=== PATIENT | female | born 1990 | race Caucasian/White ===

== ENCOUNTER → 2020-04-21 09:30 | Outpatient (BNVA) | payer BC, SELFPAY | PROVIDERS: Family Provider Nurse Practitioner Family; PCP Nurse Practitioner Family; Visit Provider Dermatology | DX: L98.9 Disorder of the skin and subcutaneous tissue, unspecified (principal) | CPT/HCPCS: 80053 ==

== ENCOUNTER → 2020-08-12 16:18 | Outpatient (BNVA) | payer BC, SELFPAY | PROVIDERS: Family Provider Nurse Practitioner Family; PCP Nurse Practitioner Family; Visit Provider Registered Nurse | DX: R63.5 Abnormal weight gain (principal); R68.89 Other general symptoms and signs | CPT/HCPCS: 80053; 84443; 85025 ==

== ENCOUNTER → 2021-07-02 08:59 | Outpatient (BNVA) | payer BC, SELFPAY | PROVIDERS: Family Provider Nurse Practitioner Family; PCP Nurse Practitioner Family; Visit Provider Registered Nurse | DX: F41.1 Generalized anxiety disorder (principal); F42.9 Obsessive-compulsive disorder, unspecified; Z79.899 Other long term (current) drug therapy | CPT/HCPCS: 80053; 84443 ==

== ENCOUNTER → 2021-09-14 13:37 | Outpatient (BNVA) | payer BC, SELFPAY | PROVIDERS: Family Provider Nurse Practitioner Family; PCP Nurse Practitioner Family; Visit Provider Registered Nurse | DX: K13.0 Diseases of lips (principal) | CPT/HCPCS: 87070; 87077; 87184 ==

== ENCOUNTER → 2022-05-04 12:58 | Outpatient (BNVA) | payer BC, SELFPAY | PROVIDERS: Family Provider Nurse Practitioner Family; PCP Nurse Practitioner Family; Referring Provider Nurse Practitioner Family; Visit Provider Podiatrist Foot & Ankle Surgery | DX: M25.579 Pain in unspecified ankle and joints of unspecified foot (principal); G89.29 Other chronic pain | CPT/HCPCS: 73610 ==

== ENCOUNTER 2022-07-14 09:04 | Outpatient (CLI) | payer BC, SELFPAY ==
--- NOTE | 2022-07-14 09:30 | MR_ITS ---
WS: [id number] MRI LEFT ANKLE without CONTRAST. COMPARISON: Radiographs 05/04/2022 Multiplanar, multisequence imaging is performed without contrast. Moderate amount of fluid in the lateral ankle joint anteriorly. There is a complete tear with absence of the anterior talofibular ligament. This is at the site of the fluid. Small ligamentous stumps are noted both at the talar and fibular attachments. There is a fluid-filled gap present at the site of the tear. Calcaneofibular ligament is only partially visualized. CFL is in normal position just med ial to the peroneus longus tendon sheath. The CFL cannot be followed in its entirety. The anterior and posterior tibiofibular ligaments are intact. The posterior talofibular ligament also appears intact. Deltoid ligament is normal. No significant widening or asymmetry of the ankle mortise. No loose bodies. The distal Achilles tendon is normal. Plantar aponeurosis is normal. The tendons within the extensor and flexor sheaths are normal. MR/MR ankle LT con* [id number] IMPRESSION: 1. Complete tear anterior talofibular ligament with a large fluid gap. 2. Incomplete visualization of the calcaneofibular ligament. 3. Mild tenosynovitis of the peroneus tendon sheath.
== END 2022-07-14 09:05 | disposition home or self-care (01) ==
PROVIDERS: Family Provider Nurse Practitioner Family; PCP Nurse Practitioner Family; Visit Provider Podiatrist Foot & Ankle Surgery
DX: G89.29 Other chronic pain; S93.492A Sprain of other ligament of left ankle, initial encounter; X58.XXXA Exposure to other specified factors, initial encounter; M65.872 Other synovitis and tenosynovitis, left ankle and foot
CPT/HCPCS: 73721

== ENCOUNTER 2022-07-29 09:07 | Day surgery (SDC) | payer BC, SELFPAY ==
[2022-07-28 18:09] VITALS: BMI 33.2
[2022-07-29] VITALS (9 sets, daily range): BP systolic 102–133; BP diastolic 46–86; PULSE 68–85; RESP 16–20; TEMP 36.5–36.9; O2SAT 94–100
--- NOTE | 2022-07-29 | SCC_ITS ---
PROCEDURE DONE: anterior talofibular ligament with a large fluid gap C-arm images of the LEFT ankle were saved for the patient's permanent record. JAYLA
--- NOTE | 2022-07-29 | XR_ITS ---
WS: [id number] INTRAOPERATIVE TECHNIQUE: 2 Spot fluoroscopic images for intraoperative purposes. CLINICAL INFORMATION: Reconstruction of lateral collateral ligaments and peroneal COMPARISON: None. FINDINGS: Reconstruction of the lateral collateral ligaments/ATF. Localization marker projected over the subtal ar facet. XR/XR ankle LT 2V [id number] IMPRESSION: Images obtained for intraoperative purposes.
[2022-07-29] MEDS: gabapentin 300 mg Capsule PO (09:53)
[2022-07-29] MEDS: CELEcoxib 200 mg Capsule 400 MG PO (09:53)
[2022-07-29] MEDS: sodium chloride 0.9% 1,000 ML 30 ML IV (09:53)
[2022-07-29] MEDS: midazolam 1 mg/mL INJ 2 mL 2 MG IVP (10:25)
--- NOTE | 2022-07-29 10:30 | W.PM.OPSUD ---
Surgery/Procedure H&P Update DATE OF PROCEDURE: July 29, 2022 DATE H&P PERFORMED: 07/20/22 CHANGES TO PREVIOUS DOCUMENTATION: none PREOP DIAGNOSIS: Left ankle instability PLANNED PROCEDURE: Operation Date: 07/29/22 10:40 Proposed Procedures p Reconstruction of lateral collateral ligaments and peroneal tenolysis, left ankle [id number],S93.412D(Left) - James Meza DPM
[2022-07-29 10:34] LABS: Blood Urea Nitrogen 11 mg/dL (6-20); Calcium 9.2 mg/dL (8.5-10.5); Carbon Dioxide 24 mmol/L (22-29); Chloride 100 mmol/L (98-107); Creatinine Clr Calc Pharmacy 125.8449; Glomerular Filtration Rate 117.4 mL/min (90-130); Glucose 81 mg/dL (65-115); Osmolality Calculated 280 mOsm/kg (285-295); Sodium 136 mmol/L (136-145)
[2022-07-29] MEDS: clindamycin 600 MG/50 ML PREMIX 100 MG IV (10:47)
--- NOTE | 2022-07-29 10:47 | ANES.PREANE2 ---
Pre-Anesthetic Assessment Height/Weight: Height 1.52 m Weight 77.111 kg Temp Pulse Resp BP Pulse Ox O2 Del Method 97.7 F 68 18 133/86 98 07/29/22 10:09 07/29/22 10:09 07/29/22 10:09 07/29/22 10:09 07/29/22 10:09 07/29/22 10:09 Preop Diagnosis: Left ankle instability Operation Date: 07/29/22 10:40 Proposed Procedures p Reconstruction of lateral collateral ligaments and peroneal tenolysis, left ankle [id number],S93.412D(Left) - James Meza DPM Familial anesthetic complications: None Was Beta Luly taken within 24 hours: N/A Was Clonidine taken within 24 hours: N/A Last intake: Intake Last Liquid Date 07/28/22 Last Liquid Time 22:30 Last Solid Date 07/28/22 Last Solid Time 22:30 Social No alcohol and No tobacco Exam alert, oriented x 3, clear to auscultation bilaterally and regular rate & rhythm Airway Submandibular: within normal limits Cervical ROM: within normal limits Mallampati: Class I Dentition: full History/ROS No significant complaints Pulmonary None reported CV/HEM None reported None reported Hepatic None reported GI None reported Metabolic Obesity PCOS Musc/skel Tendonitis Neuropsych Anxiety Anesthetic Plan ASA status: 2 Anesthesia: Anesthesia Evaluation, General and Regional (specify below) (Popliteal block for post op pain control) Other: We discussed risk and benefits of general anesthesia including PONV, sore throat (sometimes severe), corneal abrasion, positioning and peripheral nerve injuries, life threatening allergic reaction, post operative ICU admission requiring prolonged intubation, stroke, heart attack, , and rare incidences of recall. Patient consents to proceed with general anesthesia. We discussed risk and benefits of nerve block for post op pain control including management of pain and titration of pain medications as signs/symptoms of nerve block wearing off begin to appear and/or prior bed. We discussed risk of failed nerve block, vascular injury or other vital structure injury, abscess/infection, LAST, and nerve injury. Plan general with popliteal block for post op pain control. Risk of > 500 ml blood loss (7ml/kg in children): No Medications/Allergies Home Medications Medication Instructions Recorded Confirmed Last Taken Type tirzepatide 2.5 mg/0.5 mL 2.5 mg (0.5 mL) SUBCUT .once a 07/18/22 07/29/22 Unknown Rx subcutaneous pen injector week 30 days #2 mL (Sim) fluoxetine 10 mg capsule (Prozac) 10 mg PO DAILY 07/28/22 07/29/22 07/28/22 History spironolactone 50 mg tablet 50 mg PO DAILY 07/28/22 07/29/22 07/28/22 History Allergies Allergy/AdvReac Type Severity Reaction Status Date / Time cefaclor [From [facility]] Allergy Mild rash Verified 07/28/22 18:07 Penicillins Allergy Unknown Verified 07/28/22 18:07 Current Medications Generic Name Dose Route Start Last Admin Trade Name Freq PRN Reason Stop Dose Admin Sodium Chloride 1,000 mls @ 30 mls/hr 07/29/22 09:30 07/29/22 09:53 Sodium Chloride 0.9% IV 07/30/22 09:29 30 mls/hr .Q24H SREEKANTH Administration PFSH Anesthesia Medical History Anxiety disorder Obesity (BMI 30-39.9) PCOS (polycystic ovarian syndrome) Social History Smoking and tobacco status: never smoked Alcohol intake: never Adopted: No Caregiver/support person: No Lives independently: No Household members: children service: No Current occupational status: employed Sexually active: Yes Current gender identity: Female Data Anesthesia : 07/29/22 09:46 BMP 07/29/22 09:46 Sodium 136 Potassium 4.0 Chloride 100 Carbon Dioxide 24 BUN 11 Creatinine 0.6 Glucose 81 Calcium 9.2 Cardiac Studies: No Data to Display
--- NOTE | 2022-07-29 12:48 | PM.OP ---
Operative Report Date of procedure: July 29, 2022 Pre-op diagnosis: Preop Diagnosis Left ankle instability
--- NOTE | 2022-07-29 15:44 | ANES.PROC ---
Anesthesia Procedures Procedure/Date: 07/29/22 Nerve Block ^: Nerve Block 1: Main Anesthesia: general anesthesia Time Out Performed: Yes Consent: requested by attending/covering physician, from patient, risks and benefits reviewed and patient agrees to proceed Nerve block location: popliteal Anesthesia monitors applied: pulse oximetry, EKG and BP cuff Nerve block position: semi sitting Anesthetic Used: ropivicaine 0.5% Amount of anesthesia used (mL): 20 Ultrasound used to: other (visualize adn ID popliteal nerve) Nerve Stimulator Used?: Yes (Motor response lost at 0.4 mA) Interscalene/Femoral BLK: 4 stimuplex 21 g needle used for position and inplane approach, visualize local anesthetic spread and no vascular puncture identified Injection: neg aspiration of heme Patient Tolerated Procedure: well Complications: none Additional Comments: After time out sterile prep, using sterile technique, and using real time US guidance for target selection needle was inserted with real time visualization of needle entry and real time visualization of needle advancement toward intended target. Negative aspiration. LA injected incrementally with negative aspiration every 5 cc and real time US visualization of LA spread throughout procedure. Tolerated well. Image(s) saved.
--- NOTE | 2022-07-29 15:45 | ANE.PACU2 ---
Inpatient post-anesthesia follow up: Airway intact: Yes Vital signs: Temperature 98.3 F Pulse Rate 79 Respiratory Rate 18 Blood Pressure 125/72 Pulse Oximetry 98 Oxygen Delivery Me thod Room Air Oxygen Flow Rate 5 Fraction of Inspir ed Oxygen Hydration adequate: Yes Nausea and vomiting: No Pain level: 1 Mental status: Baseline
--- NOTE | 2022-07-29 17:12 | P.OP_ITS ---
Operative Report Date of procedure: July 29, 2022 Pre-op diagnosis: Chronic lateral ankle instability, left. Tenosynovitis, left peroneal tendons. Post-op diagnosis: Same Post-op findings: Tear to the left anterior talofibular ligament and calcaneofibular ligament. Hemorrhagic synovitis to the left peroneal tendons. Procedure done: Reconstruction of lateral collateral ligaments and peroneal tenolysis, left ankle. CPT codes 70207,24030, Implants: Arthrex Brostr?m internal brace 2.0 with additional swivel lock anchor. 2-0 Vicryl, 4-0 Vicryl, 4-0 nylon Specimens removed/disposition: None Pathology: None Surgeon: James Meza D.P.M. [employer] Dean: Norma Estimated blood loss: 5 See intraoperative documentation IV fluids: 0 Urine output: 0 Complications: None Findings: See above Brief History: Reviewed MRI with patient and discussed options: She has a full tear of the left anterior talofibular ligament.? Partial tear of the left calcaneofibular ligament and tenosynovitis of the left peroneal tendon sheath. Patient has instability and rolling of the ankle on a daily basis.? Has failed conservative treatments.? Has had instability that has progressed and several years in duration.? She would like to discuss surgical options.? Recommended modified Brostr?m with repair of the ATFL, CFL and internal brace ATFL and CFL as well as synovectomy of the peroneal tendon sheath.? I reviewed at length with the patient, the risks, potential complications, benefits, alternatives, expectations, and typical outcomes associated with the surgery. The risks and potential complications were explained in detail, including but not limited to infection, wound dehiscence or soft tissue complications, bleeding and hematoma, chronic edema, neuritis or nerve damage producing numbness or chronic pain, CRPS, failure to relieve pain or worsening pain, thick / painful / unsightly scar, limited motion / stiffness, malposition, delayed union, malunion, or nonunion, fracture, reaction to implants, anesthetic complications, venous thromboembolism, and deformity recurrence.? I discussed the notion of no regrets with the patient as it pertains to complications and outcomes. The patient seemed to understand the nature of the proposed care and required convalescence. They asked appropriate questions, answered to their satisfaction. They are aware no guarantees can be made as to a satisfactory outcome and they understand there may be other possible unforeseen complications or outcomes not listed here that will be treated accordingly if they arise. There were no written or implied guarantees given to the patient. They gave informed consent to proceed.? Expected recovery would be protected weightbearing for 2 weeks in a cam boot transitioning to ASO and supportive shoe for additional 6 to 12 weeks and may require physical therapy.? Procedure: Under mild sedation the patient was brought to the operating room and placed on the operating table in supine position. A timeout was performed. Anesthesia was administered by the anesthesia service. Left popliteal block was performed per anesthesia preoperatively. Gel bump placed under ipsilateral hip. Well- padded pneumatic tourniquet was applied to the left high calf. Left lower extremity was then scrubbed, prepped and draped utilizing normal aseptic technique. The left foot was exanguinated with an Esmarch bandage and the tourniquet inflated to 250 mmHg. Attention was directed to the left anterior lateral ankle where a curvilinear incision was made at the anterior border of the distal fibula coursing distally towards the inferior border of the lateral malleolus and further distal toward the lateral calcaneus along the course of the calcaneofibular ligament. Skin incision was made with #15 blade with dissection carried down through subcutaneous tissue to the layer of retinaculum which was tagged, incised and preserved for closure. Care was taken to retract and preserve neurovascular and tendinous structures. All bleeders were ligated and cauterized as necessary. Encountered the peroneal longus and brevis tendons, tendon sheath was incised and noted to have hemorrhagic synovitis which was sharply excised, irrigated with copious amounts of sterile saline solution and closed with a 4-0 Vicryl. Attention was then directed to the anterior border of the fibula where the soft tissue attachment of the ATFL was incised and reflected, access was gained to the sinus tarsi for sinus tarsi guide allowing appropriate anatomic recreation of the ATFL with internal brace. Guidewire was inserted from lateral to medial at the lateral talar body and confirmed with fluoroscopy to be in excellent position and near anatomic alignment for recreation of the ATFL, did not violate the ankle mortise. A Arthrex internal brace was then secured with swivel lock in the talus per manufacture recommendation and technique, this was advanced under direct position at appropriate depth and secured to the anterior fibula and extracapsular fashion with ankle in neutral position, hemostat under the internal brace was utilized to avoid over tightening. Of note the ATFL was torn, this was directly repaired and utilizing fiber tack x2 into the fibula readvanced to the attachment of the fibula. Knotless suture bridge both within the talus and fibula were performed per manufacture recommendation and technique utilizing Arthrex 2.0 internal brace, direct repair of the ATFL was performed and augmentation with internal brace secured along its course in anatomic fashion. Negative anterior drawer sign appreciated, positive talar tilt still appreciated intraoperatively necessitating repair of CFL which was performed with the remaining tail of the fibular attachment of the internal brace of the ATFL coursing downward to the lateral calcaneus. First approach after drill hole and tapping the swivel lock failed and a second swivel lock was utilized a nd fiber tape recreating the ATFL and CFL appreciated intraoperatively with negative talar tilt after repair. The incision was flushed with copious amounts of sterile skin solution. Smooth range of motion of the ankle appreciated. The incision was closed with retinaculum and capsular structure reapproximated utilizing 2-0 Vicryl, subcutaneous tissue reapproximated utilizing 4-0 Vicryl and skin with 4-0 nylon. The incision site was then dressed with jumpstart, sterile 4 x 4, Kerlix, Jeffrey wrap and cam boot applied with ankle in neutral position. Tourniquet was deflated and a prompt hyperemic response was noted to the distal digits of the left foot. Patient tolerated the procedure and anesthesia well and was transferred to the PACU with vital signs stable and vascular status intact. Fol lowing a period of postop monitoring she will be discharged home may be protected weightbearing as tolerated. Planning on physical therapy starting 2 weeks postoperatively.
== END 2022-07-29 14:00 | disposition home or self-care (01) ==
PROVIDERS: Anesthesiology; PCP Registered Nurse; Visit Provider Podiatrist Foot & Ankle Surgery
PROC: (CPT 27680; principal; 2022-07-29 10:30)
DX: M25.372 Other instability, left ankle (principal); S93.412D Sprain of calcaneofibular ligament of left ankle, subsequent encounter; X58.XXXD Exposure to other specified factors, subsequent encounter; E66.9 Obesity, unspecified; Z68.33 Body mass index [BMI] 33.0-33.9, adult; E28.2 Polycystic ovarian syndrome; F41.9 Anxiety disorder, unspecified
CPT/HCPCS: 27680; 27698; 73600; 76000; 80048; C1713; J1100; J2250; J2405; J2704; J2795; J3010; J3490; J7030

== ENCOUNTER 2022-08-11 16:09 | Outpatient (CLI) | payer BC, SELFPAY | END 2022-08-11 16:10 | disposition home or self-care (01) | LOC: SPT 16:09 | PROVIDERS: PCP Registered Nurse; Visit Provider Podiatrist Foot & Ankle Surgery | DX: Z46.89 Encounter for fitting and adjustment of other specified devices (principal); Z98.890 Other specified postprocedural states; Z47.89 Encounter for other orthopedic aftercare | CPT/HCPCS: 97760; L1902 ==

== ENCOUNTER → 2022-08-23 10:30 | Outpatient (BNVA) | payer BC, SELFPAY | PROVIDERS: PCP Registered Nurse; Visit Provider Podiatrist Foot & Ankle Surgery | DX: M10.9 Gout, unspecified (principal); Z98.890 Other specified postprocedural states | CPT/HCPCS: 73600; 73610; 73630 ==

== ENCOUNTER → 2022-09-08 08:08 | Outpatient (BNVA) | payer BC, SELFPAY | PROVIDERS: PCP Registered Nurse; Visit Provider Internal Medicine | DX: Z83.79 Family history of other diseases of the digestive system (principal) | CPT/HCPCS: 82784; 83516 ==

== ENCOUNTER 2022-09-22 08:53 | Outpatient (CLI) | payer BC, SELFPAY ==
--- NOTE | 2022-09-22 08:45 | MR_ITS ---
WS: [id number] MRI RIGHT ANKLE without CONTRAST. COMPARISON: None Multiplanar, multisequence imaging is performed without contrast. Normal marrow signal. No edema or fractures identified. No osteochondral lesions along the talar dome . The tibiotalar joint space is normal. No widening of the syndesmosis. Normal distal Achilles tendon and the plantar aponeurosis. There is a very small amount of fluid posterior to the talus which is normal. No joint effusion. Sust entaculum roma and the sinus tarsi are normal. There is a very small amount of increased signal throughout the deltoid ligament and the anterior tib iotalar ligament which is within normal limits. No partial tear or full thickness tears are identifie d. There is no associated edema. No loose body or fracture. There is a very small amount of fluid adj acent to the anterior talofibular ligament but the ligament appears intact. Peroneus brevis and longus are normal course and caliber and normal signal. Flexor hallucis longus is normal. The remaining tendons and the flexor and extensor tendons are normal. MR/MR ankle RT wo con* [id number] IMPRESSION: 1. Very small amount of edema adjacent to the distal fibula along the anterior talofibular ligament but no tear identified. Likely a mild sprain. 2. No ligamentous or tendon abnormality or tear identified. No tenosynovitis.
== END 2022-09-22 08:54 | disposition home or self-care (01) ==
LOC: RAD 08:55
PROVIDERS: PCP Registered Nurse; Visit Provider Podiatrist Foot & Ankle Surgery
DX: M25.371 Other instability, right ankle (principal); G89.29 Other chronic pain; M25.571 Pain in right ankle and joints of right foot; R60.0 Localized edema
CPT/HCPCS: 73721

== ENCOUNTER → 2022-10-21 07:11 | Day surgery (SDC) | payer BC, SELFPAY ==
[2022-10-21] VITALS (7 sets, daily range): BP systolic 112–148; BP diastolic 78–94; PULSE 71–86; RESP 16–17; TEMP 36.1–37; O2SAT 92–98
--- NOTE | 2022-10-21 | XR_ITS ---
WS: [id number] C-ARM RADIOGRAPHS RIGHT ANKLE; 2 IMAGES HISTORY: orif right ankle, or pic COMPARISON: None available. Intraoperative imaging during orthopedic procedure. XR/XR ankle RT 2V [id number] IMPRESSION: Intraoperative imaging RIGHT ankle. Marker indicating the talus.
--- NOTE | 2022-10-21 06:22 | W.PM.OPSUD ---
Surgery/Procedure H&P Update DATE OF PROCEDURE: October 21, 2022 DATE H&P PERFORMED: 10/21/22 PREOP DIAGNOSIS: Right ankle instability PRIMARY INDICATION FOR PROCEDURE: Right ankle instability PLANNED PROCEDURE: Operation Date: 10/21/22 08:45 Proposed Procedures p right modified jeramy [id number]/S93.411D(Right) - James Meza DPM
--- NOTE | 2022-10-21 06:23 | P.OP_ITS ---
Operative Report Date of procedure: October 21, 2022 Pre-op diagnosis: Preop Diagnosis Right ankle instability Procedure done: right modified brostrom [id number] Implants: Arthrex Brostr?m internal brace 2.0 with additional swivel lock anchor.? 2-0 Vicryl, 4-0 Vicryl, 4-0 nylon Surgeon: James Meza D.P.M. Database Management Specialist: See intraoperative documentation Estimated blood loss: 5 44 IV fluids: 0 Urine output: 0 Complications: None Brief History: Chiquita Cordoba is a 32 year old female presents with complaints of chronic right lateral ankle instability.? She relates to having her right ankle buckle, give way and roll on a regular basis.? This happens daily and sometimes multiple times daily.? She has tried physical therapy with resistance training, range of motion and balance/proprioceptive training for greater than 6 weeks, has tried bracing and supportive shoes without improvement.? She has a history of modified Brostr?m surgery performed to her left ankle with improvement and was wishing to proceed with her right.? On exam she has tenderness at the right anterior talofibular ligament, she demonstrates ligamentous laxity with anterior drawer sign and a positive talar tilt test.? Discussed risks versus benefits of a modified Brostr?m patient wishes to proceed.? I reviewed at length with the patient, the risks, potential complications, benefits, alternatives, expectations, and typical outcomes associated with the surgery. The risks and potential complications were explained in detail, including but not limited to infection, wound dehiscence or soft tissue complications, bleeding and hematoma, chronic edema, neuritis or nerve damage producing numbness or chronic pain, CRPS, failure to relieve pain or worsening pain, thick / painful / unsightly scar, limited motion / stiffness, malposition, delayed union, malunion, or nonunion, fracture, reaction to implants, anesthetic complications, venous thromboembolism, and deformity recurrence.? I discussed the notion of no regrets with the patient as it pertains to complications and outcomes. The patient seemed to understand the nature of the proposed care and required convalescence. They asked appropriate questions, answered to their satisfaction. They are aware no guarantees can be made as to a satisfactory outcome and they understand there may be other possible unforeseen complications or outcomes not listed here that will be treated accordingly if they arise. There were no written or implied guarantees given to the patient. They gave informed consent to proceed. Procedure: Under mild sedation the patient was brought to the operating room and placed on the operating table in supine position.? A timeout was performed.? Anesthesia was administered by the anesthesia service.? Right popliteal block was performed per anesthesia preoperatively.? Gel bump placed under ipsilateral hip.? Well- padded pneumatic tourniquet was applied to the right high calf.? Right lower extremity was then scrubbed, prepped and draped utilizing normal aseptic technique.? The right foot was exanguinated with an Esmarch bandage and the tourniquet inflated to 250 mmHg. Attention was directed to the right anterior lateral ankle where a curvilinear incision was made at the anterior border of the distal fibula coursing distally towards the inferior border of the lateral malleolus and further distal toward the lateral calcaneus along the course of the calcaneofibular ligament.? Skin incision was made with #15 blade with dissection carried down through subcutaneous tissue to the layer of retinaculum which was tagged, incised and preserved for closure.? Care was taken to retract and preserve neurovascular and tendinous structures.? All bleeders were ligated and cauterized as necessary.? Encountered the peroneal longus and brevis tendons, tendon sheath was incised and noted to have hemorrhagic synovitis which was sharply excised, irrigated with copious amounts of sterile saline solution and closed with a 4-0 Vicryl.? Attention was then directed to the anterior border of the right fibula where the soft tissue attachment of the ATFL was incised and reflected, access was gained to the sinus tarsi for sinus tarsi guide allowing appropriate anatomic recreation of the ATFL with internal brace.? Guidewire was inserted from lateral to medial at the lateral talar body and confirmed with fluoroscopy to be in excellent position and near anatomic alignment for recreation of the ATFL, did not violate the ankle mortise.? A Arthrex internal brace was then secured with swivel lock in the talus per manufacture recommendation and technique, this was advanced under direct position at appropriate depth and secured to the anterior fibula and extracapsular fashion with ankle in neutral position, hemostat under the internal brace was utilized to avoid over tightening.? Of note the ATFL was torn, this was directly repaired and utilizing fiber tack x2 into the fibula readvanced to the attachment of the fibula.? Knotless suture bridge both within the talus and fibula were performed per manufacture recommendation and technique utilizing Arthrex 2.0 internal brace, direct repair of the ATFL was performed and augmentation with internal brace secured along its course in anatomic fashi on.? Negative anterior drawer sign appreciated, negative talar tilt still appreciated intraoperatively. The incision was flushed with copious amounts of sterile skin solution.? Smooth range of motion of the ankle appreciated.? The incision was closed with retinaculum and capsular structure reapproximated utilizing 2-0 Vicryl, subcutaneous tissue reapproximated utilizing 4-0 Vicryl and skin with 4-0 nylon. The incision site was then dressed with jumpstart, sterile 4 x 4, Kerlix, Jeffrey wrap and cam boot applied with ankle in neutral position.? Tourniquet was deflated and a prompt hyperemic response was noted to the distal digits of the left foot.? Patient tolerated the procedure and anesthesia well and was transferred to the PACU with vital signs stable and vascular status intact.? Following a period of postop monitoring she will be discharged home may be protected weightbearing as tolerated.? Planning on physical therapy starting 2 weeks postoperatively.
--- NOTE | 2022-10-21 06:23 | PM.OPSURHP ---
Providers/Chief Complaint Primary Care Provider: COLBY Rios Chief Complaint: Right modified Brostr?m 49565/S93.411D History of Present Illness Chiquita Cordoba is a 32 year old female presents with complaints of chronic right lateral ankle instability. She relates to having her right ankle buckle, give way and roll on a regular basis. This happens daily and sometimes multiple times daily. She has tried physical therapy with resistance training, range of motion and balance/proprioceptive training for greater than 6 weeks, has tried bracing and supportive shoes without improvement. She has a history of modified Brostr?m surgery performed to her left ankle with improvement and was wishing to proceed with her right. She had an MRI performed of her right ankle. Review of Systems General: Reports: 10 or more systems reviewed and unremarkable except in HPI and below Const: Denies: fever(s) or chills Eyes: Denies: change in vision Card: Denies: chest pain or palpitations Resp: Denies: dyspnea or productive cough GI: Denies: abdominal pain, nausea or vomiting : Denies: flank pain Musc: Reports: extremity pain Skin/Breast: Denies: rash Neuro: Denies: numbness in extremities, sensory changes or frequent falls Psych: Denies: suicidal ideation Baldev/Lymph: Denies: easy bruising Medications/Allergies Home Medications Medication Instructions Recorded Confirmed Last Taken Type spironolactone 50 mg tablet 50 mg PO DAILY 07/28/22 10/20/22 10/19/22 History ASO to left #1 ea 08/11/22 09/08/22 Unknown Rx fluoxetine 10 mg capsule See Rx Instructions .Route 08/22/22 10/20/22 10/19/22 Rx .COMPLEX #90 caps Allergies Allergy/AdvReac Type Severity Reaction Status Date / Time hydrocodone Allergy Intermediate ALGY-Swell Verified 10/20/22 15:36 Lip/Tongue/Throat cefaclor [From Ceclor] Allergy Mild rash Verified 09/08/22 13:14 Penicillins Allergy Unknown Verified 09/08/22 13:14 PFSH PFSH: Medical History Anxiety disorder Obesity (BMI 30-39.9) PCOS (polycystic ovarian syndrome) Social History Smoking and tobacco status: never smoked Alcohol intake: never Adopted: No Caregiver/support person: No Lives independently: No Household members: children service: No Current occupational status: employed Sexually active: Yes Current gender identity: Female Female Reproductive History: Date of last menstrual period: 09/29/22 Vital Signs Weight: Weight last 48 hrs Weight 170 lb Physical Exam Narrative: EXAM NARRATIVE: GENERAL: Patient is alert and oriented ?3 and in no acute distress. The following is a focused bilateral lower extremity exam. VASCULAR: Dorsalis pedis and posterior tibial arteries palpable +2. Capillary refill time less than 3 seconds to the distal hallux bilaterally. Calf is supple and nontender proximally and distally. No pedal edema appreciated. Pedal hair growth present. NEUROLOGICAL: Epicritic and protopathic sensations grossly intact to the lower extremities. +2 Achilles tendon reflex noted bilaterally. Negative Tinel sign upon percussion of lower extremity nerves. DERMATOLOGICAL: Lower extremity skin is well-hydrated, normal texture and turgor. There are no open sores or lesions noted to the lower extremities. No erythema or ecchymosis present to the bilateral legs and feet. MUSCULOSKELETAL: Ligamentous laxity with anterior drawer sign to the right ankle. Positive talar tilt test to the right ankle. Minor tenderness along the course of the anterior talofibular ligament right ankle. Muscle strength is 5 out of 5 in all 3 planes to the right foot and ankle. There is some guarding with resistance against eversion and dorsiflexion right ankle. Right ankle joint range of motion is smooth without crepitus. CARDIOVASCULAR: S1, S2, normal rate, normal rhythm. Dorsalis pedis and posterior tibial arteries palpable. LUNGS: Clear to auscltation, no use of acessory muscles, no crackles or wheezes. A&P Assessment and plan (1) Chronic ankle pain: Qualifiers: Laterality: left Qualified Code(s): M25.572 - Pain in left ankle and joints of left foot; G89.29 - Other chronic pain (2) Right ankle instability: Plan Chiquita Cordoba is a 32 year old female presents with complaints of chronic right lateral ankle instability. She relates to having her right ankle buckle, give way and roll on a regular basis. This happens daily and sometimes multiple times daily. She has tried physical therapy with resistance training, range of motion and balance/proprioceptive training for greater than 6 weeks, has tried bracing and supportive shoes without improvement. She has a history of modified Brostr?m surgery performed to her left ankle with improvement and was wishing to proceed with her right. On exam she has tenderness at the right anterior talofibular ligament, she demonstrates ligamentous laxity with anterior drawer sign and a positive talar tilt test. Discussed risks versus benefits of a modified Brostr?m patient wishes to proceed. I reviewed at length with the patient, the risks, potential complications, benefits, alternatives, expectations, and typical outcomes associated with the surgery. The risks and potential complications were explained in detail, including but not limited to infection, wound dehiscence or soft tissue complications, bleeding and hematoma, chronic edema, neuritis or nerve damage producing numbness or chronic pain, CRPS, failure to relieve pain or worsening pain, thick / painful / unsightly scar, limited motion / stiffness, malposition, delayed union, malunion, or nonunion, fracture, reaction to implants, anesthetic complications, venous thromboembolism, and deformity recurrence. I discussed the notion of no regrets with the patient as it pertains to complications and outcomes. The patient seemed to understand the nature of the proposed care and required convalescence. They asked appropriate questions, answered to their satisfaction. They are aware no guarantees can be made as to a satisfactory outcome and they understand there may be other possible unforeseen complications or outcomes not listed here that will be treated accordingly if they arise. There were no written or implied guarantees given to the patient. They gave informed consent to proceed. 10/21/2022, modified Brostr?m right ankle, general anesthetic, lateral decubitus position, Arthrex internal brace, mini C arm, right popliteal block per anesthesia preoperatively would be greatly appreciated. Coding Level of Care Code Acute [employer] for Chg Fwd Diagnoses Chronic ankle pain M25.572; G89.29 Laterality: left Right ankle instability M25.371
[2022-10-21] MEDS: sodium chloride 0.9% 1,000 ML 30 ML IV (07:36)
[2022-10-21] MEDS: gabapentin 300 mg Capsule PO (07:37)
[2022-10-21] MEDS: CELEcoxib 200 mg Capsule 400 MG PO (07:37)
--- NOTE | 2022-10-21 08:03 | SUR.PREOP ---
Time out completed in OPS, Block completed at bedside with Dr Sosa. Patient tolerated well.
--- NOTE | 2022-10-21 08:04 | P.ANESASSM_ITS ---
Pre-Anesthetic Assessment Height/Weight: Height 1.52 m Weight 77.111 kg Temp Pulse Resp BP Pulse Ox O2 Del Method 98.6 F 71 17 148/93 98 10/21/22 07:24 10/21/22 07:24 10/21/22 07:24 10/21/22 07:24 10/21/22 07:24 10/21/22 07:24 Preop Diagnosis: Chronic right lateral ankle instability. Operation Date: 10/21/22 08:45 Proposed Procedures p right modified brostrom 49639/S93.411D(Right) - James Meza DPM Familial anesthetic complications: None Was Beta Luly taken within 24 hours: N/A Was Clonidine taken within 24 hours: N/A Last intake: Intake Last Liquid Date 10/20/22 Last Liquid Time 23:00 Last Solid Date 10/20/22 Last Solid Time 20:00 Social No alcohol and No tobacco Exam alert, oriented x 3, clear to auscultation bilaterally and regular rate & rhythm Airway Mallampati: Class I Dentition: full Metabolic Morbid Obesity Anesthetic Plan ASA status: 2 Anesthesia: General and Regional (specify below) Risk of > 500 ml blood loss (7ml/kg in children): No Medications/Allergies Home Medications Medication Instructions Recorded Confirmed Last Taken Type spironolactone 50 mg tablet 50 mg PO DAILY 07/28/22 10/20/22 10/19/22 History ASO to left #1 ea 08/11/22 09/08/22 Unknown Rx fluoxetine 10 mg capsule 10 mg PO DAILY 10/21/22 10/21/22 10/19/22 History Allergies Allergy/AdvReac Type Severity Reaction Status Date / Time hydrocodone Allergy Intermediate ALGY-Swell Verified 10/21/22 07:21 Lip/Tongue/Throat cefaclor [From [facility]] Allergy Mild rash Verified 10/21/22 07:21 Penicillins Allergy Unknown Verified 10/21/22 07:21 Current Medications Generic Name Dose Route Start Last Admin Trade Name Freq PRN Reason Stop Dose Admin Sodium Chloride 1,000 mls @ 30 mls/hr 10/21/22 07:15 10/21/22 07:36 Sodium Chloride 0.9% IV 10/22/22 07:14 30 mls/hr .Q24H SREEKANTH Administration PFSH Anesthesia Medical History Anxiety disorder Obesity (BMI 30-39.9) PCOS (polycystic ovarian syndrome) Social History Smoking and tobacco status: never smoked Alcohol intake: never Adopted: No Caregiver/support person: No Lives independently: No Household members: children service: No Current occupational status: employed Sexually active: Yes Current gender identity: Female Female Reproductive History Date of last menstrual period: 09/29/22 Data Anesthesia 10/21/22 Unknown Cardiac Studies: No Data to Display
--- NOTE | 2022-10-21 08:05 | ANES.PROC ---
Anesthesia Procedures Procedure/Date: 10/21/22 Nerve Block ^: Nerve Block 1: Main Anesthesia: general anesthesia Time Out Performed: Yes Consent: requested by attending/covering physician, from patient, risks and benefits reviewed and patient agrees to proceed Nerve block location: popliteal (L) Anesthesia monitors applied: pulse oximetry, EKG, BP cuff and oxygen Nerve block position: supine Anesthetic Used: ropivicaine 0.5% (30 ml) and with decadron (4 mg) Ultrasound used to: recognize landmarks Nerve Stimulator Used?: No Interscalene/Femoral BLK: 4 stimuplex 21 g needle used for position and inplane approach, visualize local anesthetic spread and no vascular puncture identified Injection: neg aspiration of heme Patient Tolerated Procedure: well Complications: none
[2022-10-21 08:19] LABS: Anion Gap 16.4 (5-19); Blood Urea Nitrogen 7 mg/dL (6-20); Calcium 9.1 mg/dL (8.5-10.5); Carbon Dioxide 22 mmol/L (22-29); Chloride 101 mmol/L (98-107); Creatinine Clr Calc Pharmacy 125.8449; Glomerular Filtration Rate 117.4 mL/min (90-130); Glucose 84 mg/dL (65-115); Osmolality Calculated 277 mOsm/kg (285-295); Potassium 4.4 mmol/L (3.5-5.1); Sodium 135 mmol/L (136-145)
[2022-10-21] MEDS: clindamycin 600 MG/50 ML PREMIX 100 MG IV (09:22)
[2022-10-21 10:17] LABS: OR HCG Qualitative Urine Negative (Negative)
--- NOTE | 2022-10-21 14:07 | ANE.PACU2 ---
Inpatient post-anesthesia follow up: Airway intact: Yes Vital signs: Temperature 97.2 F Pulse Rate 78 Respiratory Rate 16 Blood Pressure 134/78 Pulse Oximetry 94 Oxygen Delivery Me thod Room Air Oxygen Flow Rate Fraction of Inspir ed Oxygen Hydration adequate: Yes Nausea and vomiting: No Pain level: 1 Mental status: Baseline
== END | disposition home or self-care (01) ==
PROVIDERS: Anesthesiology; PCP Registered Nurse; Visit Provider Podiatrist Foot & Ankle Surgery
PROC: (CPT 27698; principal; 2022-10-21 08:35)
DX: M25.371 Other instability, right ankle (principal); E66.01 Morbid (severe) obesity due to excess calories; Z68.33 Body mass index [BMI] 33.0-33.9, adult; E28.2 Polycystic ovarian syndrome
CPT/HCPCS: 27698; 36415; 73600; 76000; 80048; 81025; 84703; C1713; C9290; J1100; J2250; J2704; J2795; J3010; J3490; J7030

== ENCOUNTER → 2022-11-02 13:13 | Outpatient (BNVA) | payer BC, SELFPAY | PROVIDERS: PCP Registered Nurse; Visit Provider Nurse Practitioner Family | DX: L68.0 Hirsutism (principal) | CPT/HCPCS: 80053 ==

== ENCOUNTER → 2022-11-03 13:16 | Outpatient (BNVA) | payer BC, SELFPAY | PROVIDERS: PCP Registered Nurse; Visit Provider Podiatrist Foot & Ankle Surgery | DX: Z98.890 Other specified postprocedural states (principal) | CPT/HCPCS: 73610 ==

== ENCOUNTER → 2023-10-09 13:24 | Outpatient (BNVA) | payer OTHER, SELFPAY | PROVIDERS: Visit Provider Family Medicine | DX: Z34.90 Encounter for supervision of normal pregnancy, unspecified, unspecified trimester (principal); R30.0 Dysuria | CPT/HCPCS: 80307; 81000; 81025; 84144; 84443; 84702; 85025; 86592; 86762; 86803; 86850; 86900; 87086; 87340; 87491; 87591; 87806 ==

== ENCOUNTER 2023-10-26 13:13 | Outpatient (CLI) | payer OTHER, SELFPAY ==
--- NOTE | 2023-10-26 13:45 | US_ITS ---
WS: [id number] EARLY OBSTETRICAL ULTRASOUND (<14 WEEKS). HISTORY: Dating US 1-2 weeks from now COMPARISON: None available. Single intrauterine gestational sac is identified. Cardiac activity at 157 BPM. Mcfarland-rump length tina sures 7.3 cm which corresponds to a gestation of 13w3d. Normal-appearing yolk sac and amnion demonstr ated. No subchorionic hemorrhage. No free fluid. No adnexal mass. Cervix is closed. IMPRESSION: 1. Single intrauterine gestation of 13 weeks 3 days with an EDC of 05/19/2024. 2. Normal cardiac activity.
== END 2023-10-26 13:14 | disposition home or self-care (01) ==
LOC: RAD 13:13
PROVIDERS: PCP Family Medicine; Visit Provider Family Medicine
DX: Z34.81 Encounter for supervision of other normal pregnancy, first trimester (principal)
CPT/HCPCS: 76801

== ENCOUNTER → 2023-11-16 12:58 | Outpatient (BNVA) | payer OTHER, SELFPAY | PROVIDERS: PCP Family Medicine; Visit Provider Family Medicine | DX: Z34.81 Encounter for supervision of other normal pregnancy, first trimester (principal) | CPT/HCPCS: 81511 ==

== ENCOUNTER 2023-12-12 10:47 | Outpatient (CLI) | payer OTHER, SELFPAY ==
--- NOTE | 2023-12-12 11:45 | US_ITS ---
WS: [email or web address] OBSTETRICAL ULTRASOUND COMPLETE HISTORY: Anatomy US - About 2 weeks from now COMPARISON: None available. Single intrauterine gestation in Cephalic presentation. Cervix is Closed and normal length. Cervical length is 5.5 cm. Normal amount of amniotic fluid surrounds the fetus. Placenta: Anterior, no previa or abruption. Placenta grade 0 Heart: 130 BPM. Four chambers are identified. RIGHT and LEFT outflow tracts are unremarkable. Anatomy: Limited evaluation of the spine and intracranial structures. Poor imaging technique. No abno rmality identified. kidneys, stomach and urinary bladder are unremarkable. Abdominal wall, thre e-vessel cord and cord insertion site are normal. 4 extremities are present. profile: Unremarkable. Gender: Not imaged. measurements: BPD = 4.5 cm = 19 weeks 4 days; HC = 16.9 cm = 19 weeks 4 days; AC = 14.3 cm = 19 weeks 4 days; FL = 2.9 cm = 19 weeks 2 days; EFW: 294.0 g. Biometry is internally concordant. AGA by ultrasound: 19 weeks 4 days JESUS by ultrasound: 05/03/2024 IMPRESSION: 1. Single intrauterine gestation of 19 weeks 4 days with an JESUS of 05/03/2024. 2. Quality of this evaluation is limited by poor technique. No anatomic abnormalities are identified .
== END 2023-12-12 10:48 | disposition home or self-care (01) ==
LOC: RAD 10:47
PROVIDERS: PCP Family Medicine; Visit Provider Family Medicine
DX: Z34.82 Encounter for supervision of other normal pregnancy, second trimester (principal)
CPT/HCPCS: 76805

== ENCOUNTER 2024-01-04 07:54 | Outpatient (CLI) | payer OTHER, SELFPAY ==
--- NOTE | 2024-01-04 08:00 | US_ITS ---
WS: [id number] ULTRASOUND OB FOCUSED HISTORY: Follow-up spine and intracranial structures. COMPARISON: 12/12/2023 Breech position. Cervix is closed. Normal amniotic fluid. heart rate at 150 BPM. Additional imaging of the intracranial structures and the spine are negative. No abnormality identifi ed. Gender: Female. IMPRESSION: 1. Reevaluation of the intracranial structures and spine are negative. 2. Normal heart rate.
== END 2024-01-04 07:55 | disposition home or self-care (01) ==
LOC: RAD 07:54
PROVIDERS: PCP Family Medicine; Visit Provider Family Medicine
DX: Z34.81 Encounter for supervision of other normal pregnancy, first trimester (principal)
CPT/HCPCS: 76815

== ENCOUNTER → 2024-01-08 09:28 | Outpatient (BNVA) | payer OTHER, SELFPAY | PROVIDERS: PCP Family Medicine; Visit Provider Family Medicine | DX: Z34.81 Encounter for supervision of other normal pregnancy, first trimester (principal) | CPT/HCPCS: 82950 ==

== ENCOUNTER → 2024-02-12 11:55 | Outpatient (BNVA) | payer OTHER, SELFPAY | PROVIDERS: PCP Family Medicine; Visit Provider Family Medicine | DX: N75.0 Cyst of Bartholin's gland (principal) | CPT/HCPCS: 87070 ==

== ENCOUNTER → 2024-03-08 11:15 | Outpatient (BNVA) | payer OTHER, SELFPAY | PROVIDERS: PCP Family Medicine; Visit Provider Family Medicine | DX: Z34.81 Encounter for supervision of other normal pregnancy, first trimester (principal); Z51.81 Encounter for therapeutic drug level monitoring | CPT/HCPCS: 85025 ==

== ENCOUNTER → 2024-03-21 09:58 | Outpatient (BNVA) | payer OTHER, SELFPAY | PROVIDERS: PCP Family Medicine; Visit Provider Family Medicine | DX: N39.0 Urinary tract infection, site not specified (principal); O99.810 Abnormal glucose complicating pregnancy | CPT/HCPCS: 81000 ==

== ENCOUNTER → 2024-03-25 08:22 | Outpatient (BNVA) | payer OTHER, SELFPAY | PROVIDERS: PCP Family Medicine; Visit Provider Family Medicine | DX: O99.810 Abnormal glucose complicating pregnancy (principal) | CPT/HCPCS: 82951; 82952 ==

== ENCOUNTER 2024-04-01 12:48 | Outpatient (CLI) | payer OTHER, SELFPAY ==
[2024-04-01] VITALS (9 sets, daily range): BP systolic 137–152; BP diastolic 78–88; PULSE 74–88; BMI 35.2
--- NOTE | 2024-04-01 13:05 | USR_ITS ---
PROCEDURE INFORMATION: Exam: US , Limited Exam date and time: 04/01/2024 2:21 PM Age: 33 years old Clinical indication: Screening exam; Routine US, uterus; Additional info: Gdm, evaluate head position and efw LABS AND CLINICAL REPORTS: Gestational age (Established): 36 w 0 d Estimated due date (Established): 04/29/2024 TECHNIQUE: Imaging protocol: Real-time ultrasound of the maternal uterus with image documentation. Exam focused on the clinical indication. COMPARISON: US OB limited [id number] 01/04/2024 8:05 AM FINDINGS: Gestation: Single live intrauterine gestation. heart rate: 142 bpm. presentation and position: Cephalic presentation. Face is positioned to maternal right. Placenta: Anterior grade 1 placenta. Amniotic fluid index: ELLYN is 9.96 cm. 10 cm (normal). stomach: There is fluid in the stomach. BIOMETRY: Gestational age (AUA): 32 weeks 6 days Estimated due date (AUA): 05/21/2024 by ultrasound (04/29/2024 by established dates and 05/03/2024 based on prior ultrasound obtained on 12/12/2023). Estimated weight: 2043 g (less than 3rd percentile). Biparietal diameter (BPD): 8.3 cm (33 weeks 4 days, 5th percentile). Head circumference (HC): 29.6 cm (32 weeks 5 days, less than 3rd percentile). Abdominal circumference (AC): 28.8 cm (32 weeks 5 days, less than 3rd percentile). Femur length (FL): 6.3 cm (32 weeks 4 days, less than 3rd percentile). HC/AC: 1.03. (Normal range: 0.96 - 1.11) FL/HC: 21.19. (Normal range: 19.79 - 21.47) FL/BPD: 75.39. (Normal range: 71 - 87) FL/AC: 21.84. (Normal range: 20 - 24) MATERNAL: Cervix: Cervix is long and closed. Urinary bladder: The maternal bladder is unremarkable. US/US OB limited [id number] IMPRESSION: 1. Single live intrauterine gestation of 32 weeks 6 days by ultrasound for JESUS of 05/21/2024. Clinical and ultrasound dates are non concordant (established JESUS 04/29/2024). There has been less than expected interval growth since the prior ultrasound on 12/12/2023 (JESUS from prior ultrasound is 05/03/2024). 2. Estimated weight is 2043 g (less than 3rd percentile). 3. Cephalic presentation, face to maternal right.
== END 2024-04-01 15:25 | disposition home or self-care (01) ==
LOC: OPOB 12:56 → OBGYN 12:57
PROVIDERS: PCP Family Medicine; Visit Provider Family Medicine
DX: O24.419 Gestational diabetes mellitus in pregnancy, unspecified control (principal); Z3A.00 Weeks of gestation of pregnancy not specified
CPT/HCPCS: 76815; 87081

== ENCOUNTER 2024-04-08 15:13 | Outpatient (CLI) | payer OTHER, SELFPAY ==
--- NOTE | 2024-04-08 15:18 | USR_ITS ---
PROCEDURE INFORMATION: Exam: US , Limited Exam date and time: 04/08/2024 3:30 PM Age: 33 years old Clinical indication: Lmp or gestational age (in weeks): 37w; Other: Sga; ; Additional info: Weekly ellyn/bpp/resistive index of umb. Art x 3, starting Monday of next week LABS AND CLINICAL REPORTS: Gestational age (Established): 37 w 0 d Estimated due date (Established): 04/29/2024 TECHNIQUE: Imaging protocol: Real-time ultrasound of the maternal uterus with image documentation. Exam focused on the clinical indication. COMPARISON: US OB limited [id number] 04/01/2024 2:21 PM FINDINGS: Gestation: Single live intrauterine . heart rate: 132 bpm presentation and position: Vertex presentation Placenta: Placenta is anterior fundal. Amniotic fluid index: ELLYN is 12.58 cm. BIOMETRY: Gestational age (AUA): 34 week 3 day Estimated due date (AUA): 05/17/2024 Estimated weight: 2433.12 g. EFW by AC, BPD, FL, HC, Hadlock 1985. Estimated weight percentile 6.1 Biparietal diameter (BPD): 8.48 cm. EGA (BPD) is 34 w 1 d. 4.1 % percentile Head circumference (HC): 30.83 cm. EGA (HC) is 34 w 3 d. 3 % percentile Abdominal circumference (AC): 30.61 cm. EGA (AC) is 34 w 4 d. 6.8 % percentile Femur length (FL): 6.68 cm. EGA (FL) is 34 w 3 d. 3.2 % percentile HC/AC: 1.01. (Normal range: 0.94 - 1.11) FL/HC: 21.67. (Normal range: 19.7 - 22.01) FL/BPD: 78.77. (Normal range: 71 - 87) FL/AC: 21.82. (Normal range: 20 - 24) MATERNAL: Cervix: Cervical length measures 3.4 cm. PROCEDURE INFORMATION: Exam: US Biophysical Profile Without Non-Stress Test Exam date and time: 04/08/2024 3:30 PM Clinical indication: Lmp or gestational age (in weeks): 37w; Other: Sga; ; Additional info: Weekly ellyn/bpp/resistive index of umb. Art x 3, starting Monday of next week TECHNIQUE: Imaging protocol: US biophysical profile without non-stress testing. COMPARISON: No relevant prior studies available. FINDINGS: BIOPHYSICAL PROFILE: breathing (BPP): 2 out of 2. gross body movement (BPP): 2 out of 2. tone (BPP): 2 out of 2. Amniotic fluid (BPP): 2 out of 2. US/US OB limited [id number] IMPRESSION: 1. Single live intrauterine in cephalic presentation 2. Small for gestational age. Estimated weight is 6.1 percentile. 390 g growth since the ultrasound 1 week ago. 3. Clinical gestational age 37 weeks 0 day with due date of 04/29/2024. Ultrasound gestational age 34 week 3 day with estimated due date 05/17/2024 which is over 14 days discrepancy but less than on the previous examination. IMPRESSION: Biophysical profile score is 8 out of 8.
== END 2024-04-08 15:14 | disposition home or self-care (01) ==
LOC: RAD 15:14
PROVIDERS: PCP Family Medicine; Visit Provider Family Medicine
DX: Z34.81 Encounter for supervision of other normal pregnancy, first trimester (principal)
CPT/HCPCS: 76815

== ENCOUNTER 2024-04-08 16:04 | Outpatient (CLI) | payer OTHER, SELFPAY ==
[2024-04-08 16:17] VITALS: BP 140/96; PULSE 83
[2024-04-08 16:20] VITALS: BMI 35.6
[2024-04-08 16:37] VITALS: BP 140/84; PULSE 76
[2024-04-08 16:57] VITALS: BP 141/88; PULSE 81
[2024-04-08 17:15] VITALS: BP 141/88; PULSE 81
== END 2024-04-08 17:49 | disposition home or self-care (01) ==
LOC: OPOB 16:08 → OBGYN 16:09
PROVIDERS: PCP Family Medicine; Visit Provider Family Medicine
DX: O36.5990 Maternal care for other known or suspected poor fetal growth, unspecified trimester, not applicable or unspecified (principal); Z3A.00 Weeks of gestation of pregnancy not specified
CPT/HCPCS: 59025; 99211

== ENCOUNTER 2024-04-12 16:32 | Inpatient (IN) | payer OTHER, SELFPAY ==
[2024-04-12] VITALS (42 sets, daily range): BP systolic 119–178; BP diastolic 66–115; PULSE 68–94; BMI 36.3
[2024-04-12 11:42] LABS: Add Urine Microscopic? NO; Charge for UA Resulting for Rev
[2024-04-12 11:43] LABS: Basophils % 0.3 %; Eosinophils # 0.1 10^3/uL (0.0-0.8); Eosinophils % 1.1 %; Hematocrit 39.4 % (36-47); Lymphocytes % 17.6 %; Mean Corpuscular Hemoglobin 30.9 pg (27-33); Mean Corpuscular Volume 90.8 fl (85-98); Mean Platelet Volume 10.4 fL (7.4-10.4); Monocytes # 0.7 10^3/uL (0.2-0.9); Monocytes % 5.9 %; Neutrophils # 8.45 10^3/uL (1.8-7.7); Neutrophils % 74.3 %; Nucleated Red Blood Cells % 0 %; Platelet Count 259 10^3/cmm (157-399); Red Blood Count 4.34 10^6/uL (3.85-5.65); Red Cell Distribution Width 12.9 % (12.1-15.1); White Blood Count 11.37 10^3/uL (3.29-11.43)
[2024-04-12 11:46] LABS: Bilirubin Urine Neg (Negative); Blood Urine Neg (Negative); Glucose Urine UA Norm (Normal); Ketones Urine Negative (Negative); Leukocyte Esterase Urine Negative (Negative); Nitrate Urine Negative (Negative); Protein Urine Neg (Negative); Specific Gravity, Urine 1.005 (1.005-1.030); Urine Appearance Clear (CLEAR); Urine Color Yellow (Yellow); Urobilinogen Urine Norm (Negative); pH Urine 7 (5-7)
[2024-04-12 12:01] LABS: Alanine Aminotransferase 10 U/L (0-33); Albumin Level 3.6 g/dL (3.5-5.2); Alkaline Phosphatase 135 U/L (35-105); Anion Gap 16.1 (5-19); Aspartate Amino Transferase 15 U/L (0-32); Blood Urea Nitrogen 6 mg/dL (6-20); Calcium 9.5 mg/dL (8.5-10.5); Carbon Dioxide 20 mmol/L (22-29); Chloride 102 mmol/L (98-107); Glomerular Filtration Rate 143.9 mL/min (90-130); Glucose 77 mg/dL (65-115); Osmolality Calculated 274 mOsm/kg (285-295); Potassium 4.1 mmol/L (3.5-5.1); Sodium 134 mmol/L (136-145); Total Bilirubin 0.2 mg/dL (0.15-1.2); Total Protein 6.6 g/dL (6.6-8.7); Uric Acid 4.5 mg/dL (2.4-5.7)
[2024-04-12 12:03] LABS: Urine Creatinine 24 mg/dL (28-217); Urine Protein Random 4 mg/dL
[2024-04-12 12:06] LABS: UPRO/UCREAT Ratio 0.17 mg/mg CR
--- NOTE | 2024-04-12 12:48 | P.HP_ITS ---
Providers/Chief Complaint 2 Primary Care Provider: Jordan Andrade MD Chief Complaint: NST History of Present Illness Chiquita Jay is a 33 year old @ 37.3 wks by LMP c/w 13 wk US. Preg c/b h/o gHTN, h/o anemia, h/o borderline oligo, anxiety on Fluoxetine. Spironolactone exposure (stopped at 4 wks ), likely breech presentation, gDM - diet controlled, small for gestational age. The patient presented to labor and delivery triage due to having elevated blood pressures in the 150 over 90s range at work. She was feeling off with a feeling of disorientation. She denied any chest pains, dizziness, flashes of light, nausea, vomiting, leakage of fluid, vaginal bleeding, fever, cough, dysuria. In triage the patient's blood pressures moved into the severe range on a couple of occasions over 160 systolic and over 110 diastolic. Because of the patient's underlying measurements of small for gestational age as well as gestational diabetes and the high blood pressures it was felt best to proceed with induction of labor. Medications/Allergies Home Medications Medication Instructions Recorded Confirmed Last Taken Type cetirizine 10 mg tablet 10 mg PO DAILY PRN 10/09/23 04/08/24 Unknown History ferrous sulfate 325 mg (65 mg 325 mg PO DAILY 10/09/23 04/08/24 Unknown History iron) tablet fluoxetine 10 mg capsule See Rx Instructions .Route 02/02/24 04/08/24 Unknown Rx .COMPLEX #90 caps Allergies Allergy/AdvReac Type Severity Reaction Status Date / Time hydrocodone Allergy Intermediate ALGY-Swell Verified 05/16/23 13:18 Lip/Tongue/Throat cefaclor [From Ceclor] Allergy Mild rash Verified 05/16/23 13:18 Penicillins Allergy Unknown Verified 05/16/23 13:18 PFSH Acute 2 PFSH: Medical History PCOS (polycystic ovarian syndrome) Anxiety disorder Obesity (BMI 30-39.9) Surgical History History of ankle surgery bilateral Family History Denies family history of Colon cancer Ovarian cancer Diabetes Heart disease Hyperlipidemia Breast cancer Hypertension Uterine cancer Thyroid disease Stroke Social History Smoking and tobacco/nicotine status: never used tobacco/nicotine Alcohol intake: never Substance/Drug Use: never Vitals/I&O/Wt Last Vital Signs Pulse 82 04/12/24 12:28 BP 164/115 04/12/24 12:28 Physical Exam 2 Narrative: General: Alert and oriented x3 Eyes: Pupils equal round and reactive to light and accommodation Mouth: Mucous membranes moist, pharynx non-erythematous Cardiac: Regular rate and rhythm without murmurs Lungs: Clear to auscultation bilaterally without wheezes, crackles or rhonchi Abdomen: Soft, non-tender, fundus consistent with gestational age Extremities: Trace edema in the bilateral lower extremities. Deep tendon reflexes normal. Data 04/12/24 11:27 04/12/24 11:27 A&P Assessment and plan (1) Supervision of normal intrauterine in multigravida: The patient is stable at this time, however her blood pressures are intermittently in the severe range. We will start antihypertensive protocol and follow her blood pressures closely. If they are staying up, we will need to look at adding IV magnesium. We will start the patient on Cytotec to induce and monitor blood sugars closely. The patient may have a laboring epidural when she reaches 3 cm. All questions were answered. Proceed with current plan of care. The patient is in agreement with the current plan of care. Qualifiers: Trimester: first trimester Qualified Code(s): Z34.81 - Encounter for supervision of other normal , first trimester (2) growth restriction antepartum: (3) Gestational hypertension: (4) Gestational diabetes: Attestations 2 Medical Necessity Statement*: The patient will be here for greater than 2 midnights due to routine intrapartum and management of labor and delivery. Coding Level of Care Code Acute Code for Chg Fwd Diagnoses Supervision of normal intrauterine in multigravida in first trimester Z34.81 Trimester: first trimester growth restriction antepartum O36.5990 Gestational hypertension O13.9 Gestational diabetes O24.419
[2024-04-12] MEDS: labetalol 200 mg Tablet 100 MG PO (13:26)
[2024-04-12 13:38] LABS: Glucose Point of Care 76 mg/dL (70-110)
[2024-04-12] MEDS: labetalol 5 mg/mL SDV 20mL 20 MG IVP (14:19)
[2024-04-12] MEDS: miSOPROStol 100 mcg tablet 25 MCG VAGINAL ×2 (16:01→20:00)
[2024-04-13] VITALS (82 sets, daily range): BP systolic 119–178; BP diastolic 57–104; PULSE 63–116; RESP 16–17; TEMP 36.4; O2SAT 95–100
[2024-04-13] MEDS: miSOPROStol 100 mcg tablet 25 MCG VAGINAL ×2 (00:04→05:14)
[2024-04-13 01:07] LABS: Glucose Point of Care 78 mg/dL (70-110)
--- NOTE | 2024-04-13 10:38 | P.PN_ITS ---
Subjective 2 Subjective: The patient is doing well today. She received Cytotec overnight and has not made any significant change. Her blood pressures are much better controlled at this point. She has had sporadic blood pressures in the severe range that self resolved without needing IV medication. She denies any chest pains, shortness of breath, headache, flashes of light, nausea, vomiting. Vitals/I&O/Wt Last Vital Signs Pulse 76 04/13/24 09:41 BP 144/88 04/13/24 09:41 O2 Del Method Room Air 04/12/24 12:39 Weight last 48 hrs Weight 186 lb Physical Exam 2 Narrative: General: Alert and oriented x3 Cardiac: Regular rate and rhythm without murmurs Lungs: Clear to auscultation bilaterally without wheezes, crackles or rhonchi Abdomen: Soft, non-tender, fundus consistent with gestational age Extremities: Trace edema in the bilateral lower extremities. Deep tendon reflexes normal. Data 04/12/24 11:27 04/12/24 11:27 A&P Assessment and plan (1) Supervision of normal intrauterine in multigravida: The patient received multiple doses of Cytotec overnight and his not reached a Quinones score of 5 yet. For this reason a Ruiz bulb was placed and we will plan to start IV Pitocin at 2 units/h in 1 hour if the Ruiz bulb has not come out yet. Will plan to follow-up with IV Pitocin after it has been out. The patient is doing well overall and we will continue to follow for the antihypertensive protocol. She may have an epidural when she reaches 3 cm if desired. Blood sugars are well-controlled. The patient and her are in agreement with current plan of care. Qualifiers: Trimester: first trimester Qualified Code(s): Z34.81 - Encounter for supervision of other normal , first trimester (2) growth restriction antepartum: (3) Gestational diabetes: (4) Gestational hypertension: Attestations 2 Medical Necessity Statement*: The patient will be here for greater than 2 midnights due to routine intrapartum and management of labor and delivery along with the above listed complications. Coding Level of Care Code Acute Code for Chg Fwd Diagnoses Supervision of normal intrauterine in multigravida in first trimester Z34.81 Trimester: first trimester growth restriction antepartum O36.5990 Gestational diabetes O24.419 Gestational hypertension O13.9
--- NOTE | 2024-04-13 11:57 | ANES.PREANE2 ---
Pre-Anesthetic Assessment Height/Weight: Height 1.52 m Weight 84.368 kg Pulse BP O2 Del Method 82 138/93 Room Air 04/13/24 11:40 04/13/24 11:40 04/12/24 12:39 Epidural Familial anesthetic complications: None Was Beta Luly taken within 24 hours: N/A Was Clonidine taken within 24 hours: N/A Last intake: Solid food 2200 Social No alcohol and No tobacco Exam alert, oriented x 3 and clear to auscultation bilaterally Airway Submandibular: within normal limits Cervical ROM: within normal limits Mallampati: Class II Dentition: full History/ROS No significant history except as noted and No significant complaints Pulmonary None reported CV/HEM Anemia and Hypertension (Gestational) None reported Hepatic None reported GI Gastroesophageal Reflux Disease Metabolic Diabetes Mellitus (Gestational) and None reported Musc/skel None reported Neuropsych Anxiety and Headache Anesthetic Plan ASA status: 2 Anesthesia: Anesthesia Evaluation, General and Regional (specify below) (Epidural) Risk of > 500 ml blood loss (7ml/kg in children): Yes, adequate IV access and fluids planned Medications/Allergies Home Medications Medication Instructions Recorded Confirmed Last Taken Type cetirizine 10 mg tablet 10 mg PO DAILY PRN Allergy Symptoms 10/09/23 04/12/24 04/11/24 22:00 History ferrous sulfate 325 mg (65 mg 325 mg PO DAILY 10/09/23 04/12/24 04/11/24 22:00 History iron) tablet fluoxetine 10 mg capsule See Rx Instructions .Route 02/02/24 04/12/24 04/11/24 22:00 Rx .COMPLEX #90 caps Allergies Allergy/AdvReac Type Severity Reaction Status Date / Time hydrocodone Allergy Intermediate ALGY-Swell Verified 05/16/23 13:18 Lip/Tongue/Throat cefaclor [From [facility]] Allergy Mild rash Verified 05/16/23 13:18 gluten Allergy ADR-Headach Verified 04/12/24 14:25 e latex Allergy Unknown Verified 04/12/24 18:43 Penicillins Allergy Unknown Verified 05/16/23 13:18 Current Medications Generic Name Dose Route Start Last Admin Trade Name Freq PRN Reason Stop Dose Admin Dextrose/Lactated Ringer's 1,000 mls @ 125 mls/hr 04/12/24 13:00 04/13/24 05:00 Dextrose 5%-Lactated Ringers IV Not Given .Q8H [facility] Insulin Human Lispro 0 unit 04/12/24 13:00 04/13/24 09:00 Insulin Lispro 100 Unit/1 Ml SUBCUT Not Given Q4H [facility] Protocol Labetalol HCl 20 mg 04/12/24 12:51 04/12/24 14:19 Labetalol 5 Mg/Ml Sdv 20ml IVP 20 mg PRN PRN Administration HYPERTENSION Protocol [facility] Anesthesia Medical History PCOS (polycystic ovarian syndrome) Anxiety disorder Obesity (BMI 30-39.9) Surgical History History of ankle surgery bilateral Family History Denies family history of Colon cancer Ovarian cancer Diabetes Heart disease Hyperlipidemia Breast cancer Hypertension Uterine cancer Thyroid disease Stroke Social History Smoking and tobacco/nicotine status: never used tobacco/nicotine Alcohol intake: never Substance/Drug Use: never Female Reproductive History : 2 Data Anesthesia 04/12/24 11:27 04/12/24 11:27 Short CBC 04/12/24 Range/Units 11:27 WBC 11.37 (3.29-11.43) 10^3/uL Hgb 13.40 (11.27-16.99) g/dL Hct 39.4 (36-47) % MCV 90.8 (85-98) fl Plt Count 259 (157-399) 10^3/cmm Neut % (Auto) 74.3 % Neut # (Auto) 8.45 H (1.8-7.7) 10^3/uL BMP 04/12/24 11:27 Sodium 134 L Potassium 4.1 Chloride 102 Carbon Dioxide 20 L BUN 6 Creatinine 0.5 Glucose 77 Calcium 9.5 Liver Function 04/12/24 Range/Units 11:27 Total Bilirubin 0.2 (0.15-1.2) mg/dL AST 15 (0-32) U/L ALT 10 (0-33) U/L Alkaline Phosphatase 135 H (35-105) U/L Albumin 3.6 (3.5-5.2) g/dL Urine 04/12/24 Range/Units 11:30 Urine Color Yellow (Yellow) Urine Appearance Clear (CLEAR) Urine pH 7 (5-7) Ur Specific [place] 1.005 (1.005-1.030) Urine Protein Neg (Negative) Urine Glucose (UA) Norm (Normal) Urine Ketones Negative (Negative) Urine Nitrate Negative (Negative) Urine Bilirubin Neg (Negative) Ur Leukocyte Esterase Negative (Negative) Blood Bank 04/12/24 11:27 Blood Type A Positive Rho(D) Type Rh positive Antibody Screen Negative Cardiac Studies: No Data to Display
[2024-04-13] MEDS: dextrose 5%-lactated ringers 1,000 ML 125 ML IV (12:25)
[2024-04-13] MEDS: lactated ringers 1,000 ML 999 ML IV ×2 (12:35→13:40)
[2024-04-13 13:25] LABS: Glucose Point of Care 83 mg/dL (70-110)
[2024-04-13] MEDS: ROPivacaine syringe 100 MG/50 ML SYRINGE 10 MG EPIDURAL ×2 (13:56→17:59)
--- NOTE | 2024-04-13 14:00 | ANES.PROC ---
Anesthesia Procedures Procedure/Date: 04/13/24 Epidural: Time Out Performed: Yes Consents Signed: Procedure Consent and NPO Consent Consent: requested by attending/covering physician, from patient, risks and benefits reviewed and patient agrees to proceed Lumbar Level: L3-L4 Epidural position: sitting Epidural procedure: sterile prep of area (betadine), 1% lidocaine to numb the area (3 mLs), neg for paresthesia, test dose given, 1.5% xylocaine 1:200k epi (3 mL/2 mL), 0.2% Ropivacaine bolus ml (5 mLs), placed PCEA, no systemic response, sterile dressing applied, L.U.D. no apparent complications and 0.2% Ropiavacaine @ mls/hr (10 mLs/hr) Additional Comments: PASCUAL 5cm, catheter threaded to 11cm. Negative aspiration for CSF. Patient tolerated well 1800: Called by OB RN d/t complaints of pain. Assessed patient and administered 100mcg fentanyl via epidural. Negative aspiration for CSF before and after administration of fentanyl. Rate increased to 13 mL/hr. Patient still complained of pain after interventions. 5mL of 0.2% Ropivacaine administered via epidural. Negative aspiration for CSF before and after administration. Patient complete and no other interventions made.
[2024-04-13] MEDS: oxytocin 30 UNIT/500 ML BAG IV (16:20)
[2024-04-13 16:45] LABS: Glucose Point of Care 89 mg/dL (70-110)
[2024-04-13] MEDS: ondansetron 2 mg/ML SDV 2 mL 4 MG IVP (17:20)
--- NOTE | 2024-04-13 19:07 | P.PCNOB_ITS ---
Delivery Note: Date of delivery: April 13, 2024 Pre-delivery diagnoses: 1. Intrauterine at 37.4 weeks gestation 2. Gestational hypertension with interm ittent severe features 3. Gestational diabetes diet controlled 4. growth restriction 5. Anxiety on fluoxetine Post-delivery diagnoses: 1. Intrauterine status post s pontaneous vaginal delivery at 37.4 weeks gestation 2. Gestational hypertension with interm ittent severe features 3. Gestational diabetes diet controlled 4. growth restriction 5. Anxiety on fluoxetine 6. Delivery of healthy female we ighing 5 pounds 7 ounces with Apgars of 8 and 9 Procedure: Spontaneous vaginal delivery Delivering Physician: Jordan Andrade MD Estimated blood loss (mL): 75 Findings: 1. Healthy infant female weighing 5 ming nds 7 ounces with Apgars of 8 and 9 2. Intact placenta with central umbilic al cord insertion site. Pre-Delivery Course: Chiquita Jay is a 33 year old G2 now P2 status post spontaneous vaginal delivery @ 37.4 wks by LMP c/w 13 wk US. Preg c/b h/o gHTN, h/o anemia, h/o borderline oligo, anxiety on Fluoxetine. Spironolactone exposure (stopped at 4 wks ), gDM - diet controlled, small for gestational age, now with gestational hypertension with intermittent severe features. The patient presented to labor and delivery triage due to having elevated blood pressures in the 150 over 90s range at work. She was feeling off with a feeling of disorientation. She denied any chest pains, dizziness, flashes of light, nausea, vomiting, leakage of fluid, vaginal bleeding, fever, cough, dysuria. In triage the patient's blood pressures moved into the severe range on a couple of occasions over 160 systolic and over 110 diastolic. Because of the patient's underlying measurements of small for gestational age as well as gestational diabetes and the high blood pressures it was felt best to proceed with induction of labor. The patient was given Cytotec and received 4 doses. The first dose was on the evening of 04/12/2024. She did not make significant change and was still 1 cm dilated with 40% effacement. Because of this a Ruiz bulb was placed on the morning of 04/13/2024 without complication. The Ruiz bulb came out after couple of hours and the patient began to contract regularly. She received a laboring epidural. She changed to 6 to 7 cm and was stalling out, so IV Pitocin was started to augment labor. The head was initially high but eventually moved down well on its own. The patient was complete by 1839 on 04/13/2024. Delivery: The patient began pushing at 1847 on 04/13/2024. The patient pushed well and after pushing with 2 contractions, the delivered at 184 on 04/13/2024 in the OA position. A nuchal cord was present and was reduced prior to delivery of the 's shoulder. The left shoulder was anterior shoulder and it delivered with ease. The rest of the infant delivered without complication. The 's mouth and nose were bulb suction by myself and the was crying immediately upon delivery. She was placed on the mother's chest where the nurses were waiting to care for her. The cord was clamped after approximately 1 minute by myself and cut by the infant's father. Cord blood was obtained. The cord was then drained of blood and traction was placed on the umbilical cord. Uterine massage was carried out and the placenta delivered without complication. The placenta was noted to be intact with a central umbilical cord insertion site. The cervix was inspected and no lacerations were noted. The vaginal was inspected and no lacerations were noted. Currently both the mother and infant are doing well. History History History 2 Term 2 0 Miscarriages/Ectopic 0 Living Children 2 Past Pregnancies Del. Date GA/Weeks Outcome Route Wt Inf Gender Labor Lgth Comp. Anesth esia Location 11/14/18 39 live - full term Vaginal 6 lb 10 oz Female 24 hr [facility] 04/13/24 37 live - full term Vaginal 5 lb 7 oz Female 20 hrs [facility] Delivery Date: 11/14/18 Last Updated by: Jordan Andrade MD Borderline low ELLYN, gHTN Delivery Date: 04/13/24 Last Updated by: Jordan Andrade MD Gestational HTN with intermittent severe pressures, gDM - diet controlled, Anxiety on Fluoxetine, growth restriction A&P Assessment and plan (1) Spontaneous vaginal delivery: (2) Gestational diabetes: (3) growth restriction antepartum: Coding Level of Care Code Acute Code for Chg Fwd Diagnoses Spontaneous vaginal delivery O80 Gestational diabetes O24.419 growth restriction antepartum O36.5990
[2024-04-13] MEDS: diphenhydrAMINE 25 mg Capsule PO (19:54)
[2024-04-14 00:45] VITALS: BP 152/90; PULSE 83; RESP 16; TEMP 36.7; O2SAT 98
[2024-04-14 03:45] VITALS: BP 148/95; PULSE 75; RESP 16; TEMP 36.7; O2SAT 97
[2024-04-14] MEDS: acetaminophen 325 mg Tablet 650 MG PO (03:50)
[2024-04-14 06:00] VITALS: BP 145/92; PULSE 81; RESP 16; TEMP 36.5; O2SAT 98
[2024-04-14 07:28] LABS: Mean Corpuscular HGB Conc 34.2 g/dL (30-55); Mean Corpuscular Hemoglobin 31.3 pg (27-33); Mean Corpuscular Volume 91.6 fl (85-98); Mean Platelet Volume 10.7 fL (7.4-10.4); Platelet Count 225 10^3/cmm (157-399); Red Blood Count 4.15 10^6/uL (3.85-5.65); Red Cell Distribution Width 12.9 % (12.1-15.1)
--- NOTE | 2024-04-14 08:00 | ANE.PACU2 ---
Inpatient post-anesthesia follow up: Airway intact: Yes Vital signs: Temperature 98.0 F Pulse Rate 87 Respiratory Rate 16 Blood Pressure 147/94 Pulse Oximetry 98 Oxygen Delivery Me thod Room Air Oxygen Flow Rate Fraction of Inspir ed Oxygen Hydration adequate: Yes Nausea and vomiting: No Pain level: 1 Mental status: Baseline Epidural Start/End: Epidural Start Date: 04/13/24 Epidural Start Time: 13:40 Epidural End Date: 04/13/24 Epidural End Time: 18:57
[2024-04-14] MEDS: ibuprofen 800 mg tablet PO ×3 (08:31→21:57)
[2024-04-14] MEDS: PRENATAL VIT NO.130/IRON/FOLIC 1 EACH TABLET PO (08:31)
[2024-04-14] MEDS: docusate sodium 100 mg Capsule PO ×2 (08:31→21:57)
[2024-04-14 10:00] VITALS: BP 134/88; PULSE 86; RESP 18; TEMP 36.5; TEMP 36.9
--- NOTE | 2024-04-14 14:02 | P.PN_ITS ---
Subjective 2 Subjective: The patient is doing well overall at this time. Her bleeding is decreasing well. She is ambulating, voiding, passing gas and tolerating food by mouth. Her pain is well-controlled with Motrin. She does have some blood pressures that are in the 130s to 150s . She has not had any symptoms associated with these. Vitals/I&O/Wt Last Vital Signs Temp 98.5 F 04/14/24 10:00 Pulse 86 04/14/24 10:00 Resp 18 04/14/24 10:00 BP 134/88 04/14/24 10:00 Pulse Ox 98 04/14/24 06:00 O2 Del Method Room Air 04/14/24 06:00 04/13/24 04/14/24 04/14/24 22:59 06:59 14:59 Intake Total 75.400 / 2094.150 Balance 75.400 / 2094.150 Physical Exam 2 Narrative: General: Alert and oriented x3 Cardiac: Regular rate and rhythm without murmurs Lungs: Clear to auscultation bilaterally without wheezes, crackles or rhonchi Abdomen: Soft, mild tenderness over uterus. The uterus is firm and 2 cm below the umbilicus. Extremities: Trace edema in the bilateral lower extremities Urinary Catheter Management: Ruiz: Cath Placed During This Visit: yes, but has since been removed by the nurse Reason for Continuing Indwelling Catheter: Decision to DC Catheter Urinary Catheter Date of Insertion: 04/13/24 Urinary Catheter Time of Insertion: 14:28 Date Urinary Catheter Removed: 04/13/24 Time Urinary Catheter Discontinued: 14:50 Latex Free: Cath Placed During This Visit: yes, but has since been removed by the nurse Reason for Continuing Indwelling Catheter: Decision to DC Catheter Urinary Catheter Date of Insertion: 04/13/24 Urinary Catheter Time of Insertion: 14:52 Date Urinary Catheter Removed: 04/13/24 Time Urinary Catheter Discontinued: 18:45 Data 04/14/24 07:00 04/12/24 11:27 A&P Assessment and plan (1) Spontaneous vaginal delivery: The patient is doing well overall. We will continue to watch her blood pressures and if they are increasing we will plan to start her on labetalol. If they are staying in the 130s range systolic then we will hold off on it. We will plan to send her home with labetalol on a as needed basis at minimum if not scheduled based on her blood pressure readings throughout the day and overnight. The patient is breast-feeding and has had some struggles with it, but it is seeming to improve. Continue with breast-feeding support. (2) growth restriction antepartum: (3) Gestational hypertension: (4) Anxiety disorder: Qualifiers: Anxiety disorder type: generalized anxiety disorder Qualified Code(s): F41.1 - Generalized anxiety disorder (5) Gestational diabetes: Attestations 2 Medical Necessity Statement*: The patient will be here for greater than 2 midnights due to routine intrapartum and management of labor and delivery with complications listed above. Coding Level of Care Code Acute Code for Chg Fwd Diagnoses Spontaneous vaginal delivery O80 growth restriction antepartum O36.5990 Gestational hypertension O13.9 Generalized anxiety disorder F41.1 Anxiety disorder type: generalized anxiety disorder Gestational diabetes O24.419
[2024-04-14 15:00] VITALS: BP 153/83; PULSE 80; RESP 18; TEMP 36.8
[2024-04-14] MEDS: labetalol 200 mg Tablet 100 MG PO (15:40)
[2024-04-14 21:57] VITALS: BP 153/83; PULSE 80; RESP 16; TEMP 36.8; O2SAT 99
[2024-04-15 04:00] VITALS: BP 146/87; PULSE 75; RESP 16; TEMP 36.6; O2SAT 98
[2024-04-15] MEDS: acetaminophen 325 mg Tablet 650 MG PO (04:51)
--- NOTE | 2024-04-15 07:19 | PM.DCS ---
Discharge Providers Date of Admission: 04/12/24 16:32 Date of Discharge: April 15, 2024 Attending Provider at Admission: Jordan Andrade MD Attending Provider at Discharge: Jordan Andrade MD Primary Care Provider: Jordan Andrade MD Diagnoses at Discharge Discharge Diagnosis (1) Spontaneous vaginal delivery: Status: Acute (2) growth restriction antepartum: Status: Acute (3) Gestational hypertension: Status: Acute (4) Anxiety disorder: Status: Acute Qualifiers: Anxiety disorder type: generalized anxiety disorder Qualified Code(s): F41.1 - Generalized anxiety disorder (5) Gestational diabetes: Status: Acute Other Information Additional DC diagnoses/information: 1. Intrauterine status post spontaneous vaginal delivery at 37.4 weeks gestation 2. Gestational hypertension with intermittent severe features 3. Gestational diabetes diet controlled 4. growth restriction 5. Anxiety on fluoxetine 6. Delivery of healthy female weighing 5 pounds 7 ounces with Apgars of 8 and 9 Reason for Visit Reason for Visit: NST Brief History: Chiquita Jay is a 33 year old G2 now P2 status post spontaneous vaginal delivery @ 37.4 wks by LMP c/w 13 wk US. Preg c/b h/o gHTN, h/o anemia, h/o borderline oligo, anxiety on Fluoxetine. Spironolactone exposure (stopped at 4 wks ), gDM - diet controlled, small for gestational age, now with gestational hypertension with intermittent severe features. The patient presented to labor and delivery triage due to having elevated blood pressures in the 150 over 90s range at work. She was feeling off with a feeling of disorientation. She denied any chest pains, dizziness, flashes of light, nausea, vomiting, leakage of fluid, vaginal bleeding, fever, cough, dysuria. In triage the patient's blood pressures moved into the severe range on a couple of occasions over 160 systolic and over 110 diastolic. Because of the patient's underlying measurements of small for gestational age as well as gestational diabetes and the high blood pressures it was felt best to proceed with induction of labor. Hospital Course Hospital Course The patient was given Cytotec and received 4 doses. The first dose was on the evening of 04/12/2024. She did not make significant change and was still 1 cm dilated with 40% effacement. Because of this a Ruiz bulb was placed on the morning of 04/13/2024 without complication. The Ruiz bulb came out after couple of hours and the patient began to contract regularly. She received a laboring epidural. She changed to 6 to 7 cm and was stalling out, so IV Pitocin was started to augment labor. The head was initially high but eventually moved down well on its own. The patient was complete by 1839 on 04/13/2024. The patient began pushing at 1847 on 04/13/2024. The patient pushed well and after pushing with 2 contractions, the delivered at 1848 on 04/13/2024 in the OA position. The rest of the delivery process was uncomplicated. The patient did not have significant bleeding and had no tears. , the patient has done well overall. Her blood pressures have been mildly elevated in the 140s to 150s. These have been asymptomatic. We will discharge her on labetalol 100 mg twice a day and she is to take her blood pressure twice a day and follow-up in the next 2 to 3 days to see how things are going. Overall the patient's bleeding is decreasing well. Her pain is well-controlled. She is ambulating, voiding, passing gas and tolerating food by mouth. Routine discharge instructions were discussed. All questions were answered. The patient will follow-up with me later this week. The patient and her are in agreement with the current plan of care. Physical Exam Narrative: General: Alert and oriented x3 Cardiac: Regular rate and rhythm without murmurs Lungs: Clear to auscultation bilaterally without wheezes, crackles or rhonchi Abdomen: Soft, mild tenderness over uterus. The uterus is firm and 2 cm below the umbilicus. Extremities: Trace edema in the bilateral lower extremities Discharge Data Studies Completed and Pending Laboratory Results WBC 13.80 10^3/uL (3.29-11.43) H 04/14/24 07:00 RBC 4.15 10^6/uL (3.85-5.65) 04/14/24 07:00 Hgb 13.00 g/dL (11.27-16.99) 04/14/24 07:00 Hct 38.0 % (36-47) 04/14/24 07:00 MCV 91.6 fl (85-98) 04/14/24 07:00 MCH 31.3 pg (27-33) 04/14/24 07:00 MCHC 34.2 g/dL (30-55) 04/14/24 07:00 RDW 12.9 % (12.1-15.1) 04/14/24 07:00 Plt Count 225 10^3/cmm (157-399) 04/14/24 07:00 MPV 10.7 fL (7.4-10.4) H 04/14/24 07:00 Neut % (Auto) 74.3 % 04/12/24 11:27 Lymph % (Auto) 17.6 % 04/12/24 11:27 [place] % (Auto) 5.9 % 04/12/24 11:27 Eos % (Auto) 1.1 % 04/12/24 11:27 Baso % (Auto) 0.3 % 04/12/24 11:27 Neut # (Auto) 8.45 10^3/uL (1.8-7.7) H 04/12/24 11:27 Lymph # (Auto) 2.0 10^3/uL (0.8-4.8) 04/12/24 11:27 [place] # (Auto) 0.7 10^3/uL (0.2-0.9) 04/12/24 11:27 Eos # (Auto) 0.1 10^3/uL (0.0-0.8) 04/12/24 11:27 Baso # (Auto) 0.0 10^3/uL (0.0-0.1) 04/12/24 11:27 Nucleated RBC % (auto) 0 % 04/12/24 11: Nucleated RBCs # 0.0 /100WBC 04/12/24 11:27 Sodium 134 mmol/L (136-145) L 04/12/24 11:27 Potassium 4.1 mmol/L (3.5-5.1) 04/12/24 11:27 Chloride 102 mmol/L (98-107) 04/12/24 11:27 Carbon Dioxide 20 mmol/L (22-29) L 04/12/24 11:27 Anion Gap 16.1 (5-19) 04/12/24 11:27 BUN 6 mg/dL (6-20) 04/12/24 11:27 Creatinine 0.5 mg/dL (0.5-0.9) 04/12/24 11:27 GFR Calculation 143.9 mL/min (90-130) H 04/12/24 11:27 Glucose 77 mg/dL (65-115) 04/12/24 11:27 POC Glucose 89 mg/dL (70-110) 04/13/24 16:40 Calculated Osmolality 274 mOsm/kg (285-295) L 04/12/24 11:27 Uric Acid 4.5 mg/dL (2.4-5.7) 04/12/24 11:27 Calcium 9.5 mg/dL (8.5-10.5) 04/12/24 11:27 Total Bilirubin 0.2 mg/dL (0.15-1.2) 04/12/24 11: AST 15 U/L (0-32) 04/12/24 11: ALT 10 U/L (0-33) 04/12/24 11: Alkaline Phosphatase 135 U/L (35-105) H 04/12/24 11:27 Total Protein 6.6 g/dL (6.6-8.7) 04/12/24 11:27 Albumin 3.6 g/dL (3.5-5.2) 04/12/24 11: Globulin 3.0 g/dL (1.3-4.6) 04/12/24 11:27 Urine Color Yellow (Yellow) 04/12/24 11:30 Urine Appearance Clear (CLEAR) 04/12/24 11:30 Urine pH 7 (5-7) 04/12/24 11:30 Ur Specific [place] 1.005 (1.005-1.030) 04/12/24 11:30 Urine Protein Neg (Negative) 04/12/24 11:30 Urine Glucose (UA) Norm (Normal) 04/12/24 11:30 Urine Ketones Negative (Negative) 04/12/24 11:30 Urine Blood Neg (Negative) 04/12/24 11:30 Urine Nitrate Negative (Negative) 04/12/24 11:30 Urine Bilirubin Neg (Negative) 04/12/24 11:30 Urine Urobilinogen Norm mg/dL (Negative) 04/12/24 11:30 Ur Leukocyte Esterase Negative (Negative) 04/12/24 11:30 U Random Total Protein 4 mg/dL 04/12/24 11:30 Urine Creatinine 24 mg/dL (28-217) L 04/12/24 11:30 Protein/Creatinin Ratio 0.17 mg/mg CR 04/12/24 11:30 Blood Type A Positive 04/12/24 11:27 Rho(D) Type Rh positive 04/12/24 11:27 Antibody Screen Negative 04/12/24 11:27 Vitals Last Vital Signs Temp 97.9 F 04/15/24 04:00 Pulse 75 04/15/24 04:00 Resp 16 04/15/24 04:00 BP 146/87 04/15/24 04:00 Pulse Ox 98 04/15/24 04:00 O2 Del Method Room Air 04/15/24 04:00 Discharge Plan Discharge Patient Disposition: Home Condition: Stable Prescriptions: New ibuprofen 800 mg Tablet 800 mg PO TID Qty: 30 0RF labetalol 100 mg tablet 100 mg PO BID Qty: 60 0RF Continued cetirizine 10 mg tablet 10 mg PO DAILY PRN (Reason: Allergy Symptoms) ferrous sulfate 325 mg (65 mg iron) tablet 325 mg PO DAILY fluoxetine 10 mg capsule See Rx Instructions .ROUTE .COMPLEX Qty: 90 0RF Dose Instruction: Take 1 capsule by mouth once daily Rx Instructions: Take 1 capsule by mouth once daily Discharge Orders: Discharge Order (Routine); Ordered 04/15/24 Ordered By: Jordan Andrade Referrals: Jordan Andrade MD [Primary Care Provider] - 1-3 days (Mon or of this week) Discharge Diet: Regular Discharge Activity: Limit activity as instructed Patient Instructions: Depression (DC), Opioid Safety (DC), Preeclampsia and Eclampsia After Delivery (GEN), Hemorrhage (DC), OB Discharge Report, OB Food/Drug Interaction Guide, Opioid Safety, OB [facility], OB Vaginal Deliveries, Abnormal Bleeding Activity Restrictions/Additional Instructions: -Keep your overall activity levels down for the next 1 to 2 weeks as your body heals from the gestational hypertension. Check your blood pressure twice a day and if your blood pressures are getting over 160/110, please contact Dr. Andrade's office for further instruction. -Nothing per vagina for 6 weeks. -Showers are recommended instead of baths for the first 6 weeks. Discharge Attestations Time Spent in Discharge Care*: less than 30 min Quality Metrics Clinical Quality Measures [ No reported AMI, CVA or VTE this stay] Coding Level of Care Code Acute Code for Chg Fwd Diagnoses Spontaneous vaginal delivery O80 growth restriction antepartum O36.5990 Gestational hypertension O13.9 Generalized anxiety disorder F41.1 Anxiety disorder type: generalized anxiety disorder Gestational diabetes O24.419
[2024-04-15 08:25] VITALS: BP 150/97
[2024-04-15 08:35] VITALS: BP 147/94; PULSE 87; RESP 16; TEMP 36.7
[2024-04-15 08:40] VITALS: BP 147/94
== END 2024-04-15 08:43 | disposition home or self-care (01) | DRG 807 ==
LOC: OPOB 16:34 → OBGYN 16:34
PROVIDERS: Admitting Provider Family Medicine; PCP Family Medicine; Visit Provider Family Medicine
DX: O13.4 Gestational [pregnancy-induced] hypertension without significant proteinuria, complicating childbirth (principal); Z37.0 Single live birth; O99.02 Anemia complicating childbirth; D64.9 Anemia, unspecified; O99.344 Other mental disorders complicating childbirth; F41.9 Anxiety disorder, unspecified; O24.420 Gestational diabetes mellitus in childbirth, diet controlled; O36.5990 Maternal care for other known or suspected poor fetal growth, unspecified trimester, not applicable or unspecified; O69.81X0 Labor and delivery complicated by cord around neck, without compression, not applicable or unspecified; O41.00X0 Oligohydramnios, unspecified trimester, not applicable or unspecified; Z3A.37 37 weeks gestation of pregnancy
CPT/HCPCS: 36415; 36416; 51702; 59025; 59409; 80053; 81003; 82570; 82962; 84156; 84550; 85025; 85027; 86850; 86900; 96374; 99211; J2405; J2590; J2795; J3010; J3490; J7120; J7121

== ENCOUNTER → 2024-04-22 15:28 | Outpatient (BNVA) | payer OTHER, SELFPAY | PROVIDERS: PCP Family Medicine; Visit Provider Family Medicine | DX: R30.0 Dysuria (principal); N39.0 Urinary tract infection, site not specified | CPT/HCPCS: 81000; 87086 ==

== ENCOUNTER → 2024-05-14 14:57 | Outpatient (BNVA) | payer OTHER, SELFPAY | PROVIDERS: PCP Family Medicine; Visit Provider Family Medicine | DX: Z39.2 Encounter for routine postpartum follow-up (principal) | CPT/HCPCS: 87624 ==

== ENCOUNTER → 2024-06-12 08:25 | Outpatient (BNVA) | payer OTHER, SELFPAY | PROVIDERS: PCP Family Medicine; Visit Provider Nurse Practitioner Women's Health | DX: Z30.9 Encounter for contraceptive management, unspecified (principal) | CPT/HCPCS: 81025 ==

== ENCOUNTER 2024-07-11 06:00 | Outpatient (CLI) | payer OTHER, SELFPAY | END 2024-07-11 06:01 | disposition home or self-care (01) | LOC: RAD 07-26 11:45 | PROVIDERS: PCP Family Medicine; Visit Provider Registered Nurse | DX: N39.0 Urinary tract infection, site not specified (principal); R33.9 Retention of urine, unspecified | CPT/HCPCS: 81000; 87077; 87086; 87184 ==

== ENCOUNTER → 2024-07-23 08:01 | Outpatient (BNVA) | payer OTHER, SELFPAY | PROVIDERS: PCP Family Medicine; Visit Provider Registered Nurse | DX: N39.0 Urinary tract infection, site not specified (principal) | CPT/HCPCS: 81000; 87086 ==

== ENCOUNTER → 2024-11-05 08:04 | Outpatient (BNVA) | payer OTHER, SELFPAY | PROVIDERS: PCP Registered Nurse; Visit Provider Registered Nurse | DX: I10 Essential (primary) hypertension (principal) | CPT/HCPCS: 80048; 84443; 85025 ==

== ENCOUNTER 2024-11-27 15:01 | Outpatient (CLI) | payer OTHER, SELFPAY | END 2024-11-27 15:02 | disposition home or self-care (01) | PROVIDERS: PCP Registered Nurse; Visit Provider Registered Nurse | DX: G47.33 Obstructive sleep apnea (adult) (pediatric) (principal) | CPT/HCPCS: G0399 ==

== ENCOUNTER → 2025-04-15 07:00 | Outpatient (BNVA) | payer OTHER, SELFPAY | PROVIDERS: PCP Registered Nurse; Visit Provider Registered Nurse | DX: E28.2 Polycystic ovarian syndrome (principal); F32.A Depression, unspecified | CPT/HCPCS: 82306; 82607; 82627; 83001; 83036; 83525; 84403; 84443; 87070 ==

== ENCOUNTER → 2025-05-07 12:05 | Outpatient (BNVA) | payer OTHER, SELFPAY | PROVIDERS: PCP Registered Nurse; Visit Provider Obstetrics & Gynecology | DX: N89.8 Other specified noninflammatory disorders of vagina (principal) | CPT/HCPCS: 88304 ==

== ENCOUNTER → 2025-06-11 09:19 | Outpatient (BNVA) | payer OTHER, SELFPAY | PROVIDERS: PCP Registered Nurse; Visit Provider Obstetrics & Gynecology | DX: K90.0 Celiac disease (principal); F90.9 Attention-deficit hyperactivity disorder, unspecified type; F41.1 Generalized anxiety disorder; G47.33 Obstructive sleep apnea (adult) (pediatric); R53.83 Other fatigue | CPT/HCPCS: 80178; 81291; 82747; 83001; 83735; 84432; 84439; 84443; 84481; 84482; 86038; 86141; 86376; 86800 ==

== ENCOUNTER → 2025-07-28 08:46 | Outpatient (BNVA) | payer OTHER, SELFPAY | PROVIDERS: PCP Registered Nurse; Visit Provider Obstetrics & Gynecology | DX: E28.2 Polycystic ovarian syndrome (principal) | CPT/HCPCS: 86038 ==